=== PATIENT | male | born 1935 | race Caucasian/White ===

== ENCOUNTER 2020-05-21 11:55 | Observation (INO) ==
[2020-05-21 13:06] LABS: Bacteria,Urine Occasional /HPF (Few); RBC,Urine 110439 /HPF (0-4); Urine Color Dark Red (Yellow); WBC,Urine 4733 /HPF (0-6)
[2020-05-21 13:07] LABS: Apearance,Urine Turbid (Clear); Glucose,Urine (UA) Negative (Negative); Ketones,Urine Negative (Negative); Protein,Urine >=500 MG/DL
[2020-05-21 13:08] LABS: Bilirubin,Urine Negative (Negative); Blood, Urine Large mg/dL (Negative); Nitrite,Urine Negative (Negative)
[2020-05-21 13:09] LABS: Urine Urobilinogen < 2.0 EU/DL (0.2-1.0)
[2020-05-21 13:29] LABS: Basophils % 0.2 % (0.0-0.8); Hematocrit 29.4 VOL% (42.0-52.0); Hemoglobin 9.6 GM/DL (14.0-18.0); Immature Granulocytes % 0.6 %; Immature Granulocytes Absolute 0.07 #; Lymphocytes # 1.1 10*3/uL (1.4-4.0); Lymphocytes % 10.2 % (21.2-54.2); Mean Corpuscular HGB Conc 32.7 GM/DL (32-36); Mean Corpuscular Volume 90.2 FL (87-102); Mean Platelet Volume 10.3 FL (9.6-12.0); Monocytes % 4.9 % (1.7-12.7); Neutrophils % 84.1 % (38.7-73.9); Platelet Count 202 T/CUMM (130-400); Red Blood Count 3.26 MC/CUMM (3.8-5.5); Red Cell Distribution Width 13.7 % (9.3-17.3); White Blood Count 10.8 T/CUMM (4-12)
[2020-05-21 13:48] LABS: INR 1.1; PT Patient Result 11.4 SECS (9.8-11.9); Partial Thromboplastin Time 25.5 SECS (23.9-33.8)
[2020-05-21 13:49] LABS: Calcium 8.8 MG/DL (8.5-10.1); Osmolality,Calculated 273.1 MOS/KG (273-304)
[2020-05-21] MEDS ORDERED: SODIUM CHLORIDE 0.9% 1,000 ML IV PRN (17:27)
[2020-05-21] MEDS ORDERED: ceFAZolin 1,000 MG in SYRINGE 1 EACH IV ONE (17:29)
[2020-05-21] MEDS ORDERED: SODIUM CHLORIDE 0.9% 500 ML IV STA (17:43)
[2020-05-21] MEDS ORDERED: DEXTROSE 50% 25 GM/50 ML VIAL IV PRN (17:48)
[2020-05-21] MEDS ORDERED: DOCUSATE SODIUM 100 MG CAPSULE PO PRN (17:48)
[2020-05-21] MEDS ORDERED: BISACODYL 5 MG TABLET PO PRN (17:48)
[2020-05-21] MEDS ORDERED: MORPHINE 4 MG/1 ML VIAL IV PRN (17:48)
[2020-05-21] MEDS ORDERED: SIMETHICONE CHEW 125 MG TABLET PO PRN (17:48)
[2020-05-21] MEDS ORDERED: CALCIUM CARBONATE CHEW 500 MG TABLET PO PRN (17:48)
[2020-05-21] MEDS ORDERED: GLUCAGON 1 MG VIAL IM PRN (17:48)
[2020-05-21] MEDS ORDERED: guaiFENesin/DM ER 600-30 MG TABLET PO PRN (17:48)
[2020-05-21] MEDS ORDERED: LACTULOSE 20 GM/30 ML UDCUP PO PRN (17:48)
[2020-05-21] MEDS ORDERED: diphenhydrAMINE CAP 25 MG CAPSULE PO PRN (17:48)
[2020-05-21] MEDS ORDERED: ACETAMINOPHEN 325 MG TABLET PO PRN ×2 (17:48→19:32)
[2020-05-21] MEDS ORDERED: ONDANSETRON 4 MG/2 ML VIAL IV PRN ×2 (17:48→19:32)
[2020-05-21] MEDS ORDERED: ALUMINUM/MAGNES/SIMETH MAX STR 30 ML UDCUP PO PRN (17:48)
[2020-05-21] MEDS ORDERED: SODIUM CHLORIDE 0.45% 1,000 ML IV SCH ×3 (18:00→19:32)
[2020-05-21] MEDS ORDERED: MORPHINE 10 MG/1 ML VIAL IV PRN (19:32)
[2020-05-21] MEDS ORDERED: PROMETHAZINE 25 MG/1 ML VIAL IM PRN (19:32)
[2020-05-21] MEDS: SODIUM CHLORIDE 0.9% 1,000 ML IV SCH (20:57)
[2020-05-21] MEDS ORDERED: ZALEPLON 5 MG CAPSULE PO SCH ×2 (21:00)
[2020-05-21] MEDS ORDERED: ZOLPIDEM 5 MG TABLET PO SCH (21:00)
[2020-05-21] MEDS ORDERED: MONTELUKAST 10 MG TABLET PO SCH (21:00)
[2020-05-21] MEDS ORDERED: AMIODARONE 200 MG TABLET PO SCH (21:00)
[2020-05-21] MEDS: ZOLPIDEM 5 MG TABLET PO SCH (22:59)
[2020-05-21] MEDS: MONTELUKAST 10 MG TABLET PO SCH (22:59)
[2020-05-21] MEDS: TAMSULOSIN 0.4 MG CAPSULE PO SCH (22:59)
[2020-05-22] MEDS: ceFAZolin 1,000 MG in SYRINGE 1 EACH IV SCH ×3 (02:35→18:39)
[2020-05-22 06:20] LABS: Basophils % 0.3 % (0.0-0.8); Eosinophils # 0.1 10*3/uL (0.0-0.87); Hematocrit 25.8 VOL% (42.0-52.0); Hemoglobin 8.4 GM/DL (14.0-18.0); Immature Granulocytes % 0.6 %; Immature Granulocytes Absolute 0.06 #; Lymphocytes # 1.8 10*3/uL (1.4-4.0); Lymphocytes % 18.6 % (21.2-54.2); Mean Corpuscular HGB Conc 32.6 GM/DL (32-36); Mean Corpuscular Volume 91.5 FL (87-102); Mean Platelet Volume 10.4 FL (9.6-12.0); Monocytes % 5.6 % (1.7-12.7); Neutrophils % 73.9 % (38.7-73.9); Platelet Count 155 T/CUMM (130-400); Red Blood Count 2.82 MC/CUMM (3.8-5.5); Red Cell Distribution Width 13.7 % (9.3-17.3); White Blood Count 9.8 T/CUMM (4-12)
[2020-05-22 06:50] LABS: % Iron Saturation 14.3 % (18-50); Ferritin 42.3 ng/ml (26-388)
[2020-05-22 06:54] LABS: Bilirubin,Total 1.2 MG/DL (0.2-1.0); Calcium 8.3 MG/DL (8.5-10.1); Osmolality,Calculated 278.7 MOS/KG (273-304); Total Protein 5.2 G/DL (6.4-8.3)
[2020-05-22 07:09] LABS: Folate 2.9 NG/ML (5.4-24.0)
[2020-05-22 07:29] LABS: Hypochromasia 1+; Microcytosis 1+
[2020-05-22] MEDS ORDERED: FUROSEMIDE 40 MG TABLET PO SCH (09:00)
[2020-05-22] MEDS ORDERED: SPIRONOLACTONE 25 MG TABLET PO SCH (09:00)
[2020-05-22] MEDS ORDERED: lisinopriL 2.5 MG TABLET PO SCH (09:00)
[2020-05-22] MEDS ORDERED: METOPROLOL SUCCINATE XL 25 MG TABLET PO SCH (09:00)
[2020-05-22] MEDS ORDERED: PARoxetine 10 MG TABLET PO SCH (09:00)
[2020-05-22] MEDS: PARoxetine 10 MG TABLET PO SCH (10:29)
[2020-05-22] MEDS: AMIODARONE 200 MG TABLET PO SCH (10:29)
[2020-05-22] MEDS: PANTOPRAZOLE 40 MG TABLET PO SCH (10:30)
[2020-05-22] MEDS: SODIUM CHLORIDE 0.9% 1,000 ML IV SCH (10:30)
[2020-05-22] MEDS ORDERED: IRON SUCROSE 300 MG in SODIUM CHLORIDE 0.9% 100 ML IV ONE (11:00)
[2020-05-22] MEDS: FOLIC ACID INJ 1 MG in SYRINGE 1 EACH IV SCH (11:25)
[2020-05-22] MEDS ORDERED: CYANOCOBALAMIN 1000 MCG/1 ML VIAL SUBCUT SCH (17:30)
[2020-05-22] MEDS: MONTELUKAST 10 MG TABLET PO SCH (20:56)
[2020-05-22] MEDS: ZOLPIDEM 5 MG TABLET PO SCH (20:56)
[2020-05-22] MEDS: TAMSULOSIN 0.4 MG CAPSULE PO SCH (20:56)
[2020-05-23 01:12] LABS: Basophils % 0.4 % (0.0-0.8); Eosinophils # 0.2 10*3/uL (0.0-0.87); Eosinophils % 2.1 % (0.00-10.9); Hematocrit 23.8 VOL% (42.0-52.0); Hemoglobin 7.9 GM/DL (14.0-18.0); Immature Granulocytes % 0.5 %; Immature Granulocytes Absolute 0.04 #; Lymphocytes # 2.3 10*3/uL (1.4-4.0); Lymphocytes % 26.8 % (21.2-54.2); Mean Corpuscular HGB Conc 33.2 GM/DL (32-36); Mean Corpuscular Volume 90.2 FL (87-102); Mean Platelet Volume 10.2 FL (9.6-12.0); Monocytes % 5.6 % (1.7-12.7); Neutrophils % 64.6 % (38.7-73.9); Platelet Count 151 T/CUMM (130-400); Red Blood Count 2.64 MC/CUMM (3.8-5.5); White Blood Count 8.6 T/CUMM (4-12)
[2020-05-23 01:23] LABS: Alanine Aminotransferase 12 U/L (16-61); Albumin 2.7 G/DL (3.4-5.0); Alkaline Phosphatase 45 U/L (45-117); Aspartate Amino Transferase 16 U/L (0-37); Bilirubin,Total < 0.39 MG/DL (0.2-1.0); Blood Urea Nitrogen 20 MG/DL (7-18); Estimated Glom Filtration Rate 63 ML/MIN; Glucose 100 MG/DL (74-106); Osmolality,Calculated 281.4 MOS/KG (273-304); Total Protein 5.2 G/DL (6.4-8.3)
[2020-05-23] MEDS: ceFAZolin 1,000 MG in SYRINGE 1 EACH IV SCH ×2 (01:25→09:25)
[2020-05-23 06:38] LABS: Hematocrit 25.9 VOL% (42.0-52.0); Hemoglobin 8.5 GM/DL (14.0-18.0)
[2020-05-23] MEDS ORDERED: LIDOCAINE 2% TOP JELLY 20 ML VIAL INTRAURETH ONE (08:21)
[2020-05-23] MEDS: AMIODARONE 200 MG TABLET PO SCH (09:24)
[2020-05-23] MEDS: FOLIC ACID INJ 1 MG in SYRINGE 1 EACH IV SCH (09:25)
[2020-05-23] MEDS: PANTOPRAZOLE 40 MG TABLET PO SCH (09:25)
[2020-05-23] MEDS: PARoxetine 10 MG TABLET PO SCH (09:25)
[2020-05-23 10:54] VITALS: BP 121/53
[2020-05-24] MEDS ORDERED: FOLIC ACID 1 MG TABLET PO SCH (12:00)
== END 2020-05-23 11:53 | disposition home or self-care (01) ==
LOC: EDUNIT# → EDBD → N.EDINP 11:55 → N.ED 11:55 → N.EDINP 18:52 → N.3E 19:01
PROVIDERS: ADMIT Urology; ATTEND Urology